=== PATIENT | female | born 1960 | race Caucasian/White ===

== ENCOUNTER → 2016-10-23 | Day surgery (SDC) | payer BC ==
[~2016-10-23] VITALS: Ht 154.9 cm; Wt 93.6 kg
[~2016-10-23] MED LIST: ATENOLOL; BABY ASPIRIN; BENAZEPRIL; HYDRALAZINE; JARDIANCE; LIDOCAINE 2% (SDV) 5 ML INJ ONE; PROPOFOL 40 ML ONE; VITAMIN D
[2016-10-23 13:24] VITALS: Ht 154.9 cm; Wt 93.6 kg
--- NOTE | 2016-10-23 16:30 | OPR ---
Date/Time of Note Date/Time of Note DATE: 10/23/16 TIME: 16:26 Operative Report Preoperative Diagnosis Surveillance for esophageal varices . Postoperative Diagnosis Impression: * Moderate gastritis versus portal hypertensive gastropathy. * Rule out H. pylori infection. Biopsies obtained * No evidence of significant esophageal or gastric varices Plan: * PPI therapy * Review pathology * Surveillance EGD in 6-12 months . Operation/Procedure Performed EGD plus biopsies Surgeon: NANCY MCDANIEL MD Anesthesia Type: MAC Estimated Blood Loss: none Transfusion Required: no Specimens Gastric body and antrum Grafts/Implants: none Complications: no NANCY MCDANIEL MD Oct 23, 2016 16:29
[2016-10-23 16:57] VITALS: BP 190/93; PULSE 72; RESP 16
--- NOTE | 2016-10-23 21:59 | GILP ---
DATE OF PROCEDURE: 10/23/2016 PROCEDURE PERFORMED: Esophagogastroduodenoscopy with biopsies. INDICATIONS FOR PROCEDURE: The patient is here for surveillance for esophageal varices. PREMEDICATIONS: Monitored anesthesia care by anesthesiologist. INSTRUMENT USED: [employer] TECHNIQUE: After informed consent, with the patient/relatives understanding the procedure, its indications, potential risks and complications, including but not limited to: allergic reaction, bleeding, perforation or infection, and after all pertinent questions were answered to the patients satisfaction, the patient/relatives signed witnessed informed consent. Following this, premedication was administered slowly IV push under careful cardiovascular and respiratory monitoring with pulse oximetry, automatic blood pressure and foreign exchange services manager. Once the sedative effect was achieved the patient was place in the left lateral decubitus, the panendoscope was introduced and advanced under visual control. Careful examination of the upper gastrointestinal tract, both on insertion as well as withdrawal of the instrument disclosed the following findings: ESOPHAGUS: There is no evidence of esophageal varices, the esophagus appears otherwise unremarkable. STOMACH: Upon entrance to the stomach air was insufflated, the gastric quinones distended normally. There is erythema, edema, congestion and biopsies were obtained to rule out H. pylori infection. PYLORUS: The pylorus appears patent and within normal limits, with no evidence of gastric outlet obstruction. DUODENUM: The duodenal mucosa was carefully examined in the duodenal bulb as well as the second portion of the duodenum and appears unremarkable with no evidence of duodenitis, ulcer or neoplasm. The instrument was then withdrawn, the patient tolerated the procedure well and was transfer out of the endoscopy suite awake, and in good condition to continue recovery under observation. IMPRESSION: 1. Moderate gastritis versus portal hypertension gastropathy. 2. Rule out H. pylori infection, biopsies obtained. 3. No evidence of significant esophageal or gastric varices. RECOMMENDATIONS: The patient will be treated with PPIs and pathology will be reviewed as soon as available. Surveillance EGD in 6-12 months is recommended. Dictated By: Tammy Evans MD /val/ /Document#: [id number]
== END | disposition home or self-care (01) ==
LOC: GIL 12:13
PROVIDERS: ATTEND Internal Medicine Gastroenterology
DX: K29.50 Unspecified chronic gastritis without bleeding (principal); K76.6 Portal hypertension; K31.89 Other diseases of stomach and duodenum; E11.9 Type 2 diabetes mellitus without complications; E66.01 Morbid (severe) obesity due to excess calories; Z68.39 Body mass index [BMI] 39.0-39.9, adult
CPT/HCPCS: 43239; 82962; 88305; 88312; Z7610